=== PATIENT | female | born 1950 | race Caucasian/White ===

== ENCOUNTER 2017-10-17 10:53 | Outpatient (REF) | payer MEDICARE, OTHER, SELFPAY ==
[2017-10-17 22:02] LABS: ALT 16 U/L (12-78); AST 16 U/L (15-37); Albumin 3.9 g/dL (3.4-5.0); Alkaline Phosphatase 77 U/L (46-116); BUN 14 mg/dL (7-18); Bilirubin, Total 0.4 mg/dL (0.2-1.0); CREATININE 0.83 mg/dL (0.55-1.02); Calcium 8.9 mg/dL (8.5-10.1); Chloride 105 mmol/L (98-107); Cholesterol 178 mg/dL (50-200); Glucose 92 mg/dL (70-100); HDL Cholesterol 67 mg/dL (40-60); LDL CHOLESTEROL 99 mg/dL (<100); Sodium 140 mmol/L (136-145); Total Protein 6.8 g/dL (6.4-8.2); Triglyceride 92 mg/dL (30-150)
[2017-10-19 11:01] LABS: Vitamin D 25 Total 38.9 ng/ml (30-100)
[2017-10-20 11:42] LABS: Hepatitis C Ab w Rflx HCV PCR Negative (NEGAT)
== END 2017-10-17 10:54 ==
LOC: NCHCN 10:53
PROVIDERS: Visit Provider Nurse Practitioner Family
DX: E78.5 Hyperlipidemia, unspecified (principal); M85.80 Other specified disorders of bone density and structure, unspecified site; F41.0 Panic disorder [episodic paroxysmal anxiety]; R53.83 Other fatigue; M54.5 Low back pain; M12.849 Other specific arthropathies, not elsewhere classified, unspecified hand; F32.9 Major depressive disorder, single episode, unspecified
CPT/HCPCS: 80053; 80061; 82306; 83721; 86803

== ENCOUNTER → 2017-11-04 00:44 | Outpatient (CLI) | payer MEDICARE, OTHER, SELFPAY ==
--- NOTE | 2017-11-04 15:48 | DI.RAD_ITS ---
SYMPTOMS/DIAGNOSIS: OSTEOPENIA, M85.80 DEXA SCAN: The dorsal lumbar scanogram is unremarkable. For the right forearm, a T score of 0.3 and a Z score of 2.0 are within the normal range. For the left hip, a T score of 0.5 and a Z score of 1.9 are also within the normal range. For the lumbar spine, a T score of -1.5 and a Z score of 0.4 indicate osteopenia and an increased fracture risk. When compared with the 08/05/2002 exam, the evaluation of the left hip would be consistent with a -1.7% decrease in mineralization. For the lumbar spine, the values today would correspond to a +5.0% interval increase in mineralization when compared with the 08/05/2002 exam.
== END ==
PROVIDERS: PCP Nurse Practitioner Family; Visit Provider Nurse Practitioner Family
DX: M85.80 Other specified disorders of bone density and structure, unspecified site (principal)
CPT/HCPCS: 77080

== ENCOUNTER → 2018-01-12 01:19 | Outpatient (CLI) | payer MEDICARE, OTHER, SELFPAY ==
--- NOTE | 2018-01-12 15:19 | DI.MAMMO_ITS ---
SYMPTOM/DIAGNOSIS: SCREENING, Z12.31 BILATERAL SCREENING MAMMOGRAM: Mammograms were interpreted according to the usual protocol including computer analysis with CAD system, tomosynthesis and C view imaging. Comparison is made with exams from 2013 through 2017. The breasts are composed of scattered fibroglandular densities, breast density Category B. There are no suspicious masses or suspicious microcalcifications seen. There has been no significant change. IMPRESSION: Category 1-B, negative mammogram. Yearly screening mammography is recommended. [facility] ASSESSMENT OF FINDINGS: Negative. Category 1. Patient will receive a letter notifying them of these results. BI-RADS category B. There are scattered areas of fibroglandular density.
== END ==
PROVIDERS: PCP Nurse Practitioner Family; Visit Provider Nurse Practitioner Family
DX: Z12.31 Encounter for screening mammogram for malignant neoplasm of breast (principal)
CPT/HCPCS: 77063; 77067

== ENCOUNTER 2018-08-10 15:11 | Outpatient (REF) | payer MEDICARE, OTHER, SELFPAY ==
[2018-08-10 21:37] LABS: ALT 29 U/L (12-78); AST 25 U/L (15-37); Albumin 4.1 g/dL (3.4-5.0); Alkaline Phosphatase 92 U/L (46-116); Anion Gap 8.9 mmol/L (3-11); BUN 23 mg/dL (7-18); Bilirubin, Total 0.3 mg/dL (0.2-1.0); CO2 31.1 mmol/L (21.0-32.0); CREATININE 0.85 mg/dL (0.55-1.02); Calcium 9.3 mg/dL (8.5-10.1); Chloride 102 mmol/L (98-107); Glucose 104 mg/dL (70-100); Sodium 142 mmol/L (136-145); Total Protein 7.2 g/dL (6.4-8.2)
== END 2018-08-10 15:31 ==
LOC: NCHCN 15:11
PROVIDERS: PCP Nurse Practitioner Family; Visit Provider Nurse Practitioner Family
DX: K30 Functional dyspepsia (principal); R53.83 Other fatigue; F32.9 Major depressive disorder, single episode, unspecified; E78.5 Hyperlipidemia, unspecified; I10 Essential (primary) hypertension; G47.33 Obstructive sleep apnea (adult) (pediatric); M54.5 Low back pain; E66.3 Overweight
CPT/HCPCS: 80053

== ENCOUNTER 2019-03-04 00:53 | Outpatient (CLI) | payer MEDICARE, OTHER, SELFPAY ==
--- NOTE | 2019-03-04 12:29 | DI.MAMMO_ITS ---
EXAM: MAMMO SCREENING CLINICAL HISTORY: SCREENING Z12.31. TECHNIQUE: Full field digital CC and MLO mammographic images were obtained with 3D tomosynthesis and utilizing computer aided detection (CAD). COMPARISON: 2010 to 2017. FINDINGS: Breast Density - Category B - Scattered areas of fibroglandular density Masses/Architectural Distortion: None seen. Microcalcifications: No suspicious pleomorphic-type calcifications are seen. Skin Thickening/Nipple Retraction: None. Axilla: Unremarkable. IMPRESSION: 1. BI-RADS category 1, negative. No significant interval change with no specific features of maligna ncy noted. 2. Unless there is more urgent need, screening mammography is recommended, as per [employer] guidelines. BI-RADS Cat 1 - Negative Breast Density - Category B - Scattered areas of fibroglandular density A negative radiographic report should not delay biopsy if a dominant or clinically suspicious mass is present. Up to ten percent of cancers are not identified on mammography. A negative report may reinforce clinical impression. Adenosis and dense breasts may obscure an underlying neoplasm. False positive reports average 6 to 10%. Patient will receive a letter notifying them of these results.
== END 2019-03-04 01:13 ==
PROVIDERS: PCP Nurse Practitioner Family; Visit Provider Nurse Practitioner Family
DX: Z12.31 Encounter for screening mammogram for malignant neoplasm of breast (principal)
CPT/HCPCS: 77063; 77067

== ENCOUNTER 2019-08-03 09:49 | Outpatient (REF) | payer MEDICARE, OTHER, SELFPAY ==
[2019-08-03 22:23] LABS: ALT 25 U/L (14-59); AST 19 U/L (15-37); Albumin 4.3 g/dL (3.4-5.0); Alkaline Phosphatase 110 U/L (46-116); Anion Gap 9.2 mmol/L (3-11); BUN 18 mg/dL (7-18); Bilirubin, Total 0.5 mg/dL (0.2-1.0); CO2 29.8 mmol/L (21.0-32.0); CREATININE 0.86 mg/dL (0.55-1.02); Calcium 9.2 mg/dL (8.5-10.1); Chloride 102 mmol/L (98-107); Glucose 97 mg/dL (74-106); Magnesium 2.3 mg/dL (1.8-2.4); Sodium 141 mmol/L (136-145); Total Protein 7.5 g/dL (6.4-8.2); Vitamin B12 336 pg/mL (193-986)
== END 2019-08-03 10:09 ==
LOC: NCHCN 09:49
PROVIDERS: PCP Nurse Practitioner Family; Visit Provider Nurse Practitioner Family
DX: I10 Essential (primary) hypertension (principal); R53.83 Other fatigue; F32.9 Major depressive disorder, single episode, unspecified; K30 Functional dyspepsia; E66.3 Overweight; G47.33 Obstructive sleep apnea (adult) (pediatric)
CPT/HCPCS: 80053; 82607; 83735

== ENCOUNTER → 2019-11-04 13:02 | Outpatient (BNVA) | payer MEDICARE, OTHER, SELFPAY | PROVIDERS: PCP Nurse Practitioner Family; Referring Provider Nurse Practitioner Family; Visit Provider Physical Therapy Assistant | DX: Z12.11 Encounter for screening for malignant neoplasm of colon (principal); I10 Essential (primary) hypertension ==

== ENCOUNTER 2019-11-22 09:12 | Day surgery (SDC) | payer MEDICARE, OTHER, SELFPAY ==
--- NOTE | 2019-11-22 06:45 | W.COLOREPORT ---
Date of service: 11/22/19 Time of Service: 10:52 Colonoscopy Report Date of procedure: 11/22/19 Pre-op diagnosis general: Colon Cancer Screening Post-op diagnosis procedure note: same (and mild escobar-diverticulosis) Procedure: Colonoscopy Surgeon: Rosalie Nieto Anesthesia proc note operative: other (General/ASA 2 /Bg [place] CRNA) Estimated blood loss (mL): 0 Pathology: none sent Complications: None Disposition: no change Indications: The patient is here for Colonoscopy pre-op. She is unable to recall when her last Colonoscopy was. Unable to find records for her Colonoscopy. She has no family history of colon cancer. She has not had any bowel habit changes. -Discussed colonoscopy bowel prep as well as the procedure. Discussed possible complications of the procedure to include bleeding, pain, perforation, missed small lesion/polyp, sore throat, aspiration and adverse reaction to the medications. Questions were answered to patient?s satisfaction. No guarantees were implied or given. Prep: Miralax/Dulcolax Procedure Start Time: :52 Procedure End Time: 11:15 Retraction Time: 12 minutes Findings: mild escobar-diverticulosis Procedure Description: After informed consent was obtained the patient was taken to the procedure room and placed in a left decubitous position. Monitors were applied and a time out was done. The patients name, date of , procedure, allergies to medications and metal in their body was reviewed. The patient was then sedated. Once sedated and comfortable a rectal exam was done. External exam was normal. Internal exam revealed a normal sphincter tone and no palpable masses. The scope was then introduced and retro-flexed. No internal hemorrhoids were identified. The scope was then advanced to the cecum without difficulty. The ileocecal valve and appendiceal orifice were identified. The prep was good. The scope was then slowly retracted over 12 minutes back into the rectum. There were no polyps. There was mild escobar-diverticulosis noted. The scope was removed and the patient was woken up and taken back to Same day surgery in stable condition. The patient tolerated the procedure well and there were no immediate complications. Follow up: The patient should follow up in 10 years unless they develop changes in bowel habits or other new gastrointestinal complaints.
--- NOTE | 2019-11-22 06:47 | W.PM.DSUDISC ---
Discharge Plan Disposition Patient Disposition: HOME Condition: Good Discharge Details Reason For Visit: Colonoscopy Attending Provider: Rosalie Nieto Primary Care Provider: Angelica Aguirre Home Meds and New Rx's Prescriptions: Continued omeprazole 20 mg capsule,delayed release(DR/EC) 20 mg PO DAILY RF: 0 amlodipine [Norvasc] 5 mg tablet 5 mg PO DAILY RF: 0 simvastatin 20 mg tablet 20 mg PO DAILY RF: 0 losartan-hydrochlorothiazide 100-25 mg tablet 1 tab PO DAILY RF: 0 cholecalciferol (vitamin D3) 25 mcg (1,000 unit) capsule 25 mcg PO DAILY RF: 0 sertraline 50 MG tablet 50 mg PO DAILY RF: 0 calcium carbonate 500 MG tablet,chewable 500 mg PO DAILY RF: 0 Discontinued polyethylene glycol 3350 17 gram/dose powder 238 g PO ONCE Qty: 238 RF: 0 bisacodyl [Dulcolax (bisacodyl)] 5 mg tablet,delayed release (DR/EC) 5 mg PO ONCE Qty: 4 RF: 0 Discharge Instructions Instructions: Diverticulosis (DC) Additional Instructions: Findings: mild diverticulosis Follow up: 10 years Please call if you develop: fevers >101.5 Nausea or Vomiting Abdominal pain that is not transient DAY SURGERY UNIT POST ENDOSCOPY INSTRUCTIONS 1. Because there will be medication in your system for the next 24 hours, you may feel a little sleepy. Your coordination will be affected. Therefore: a. Do not drive or operate dangerous equipment for 24 hours. b. Do not drink alcohol beverages for 24 hours (not even beer). c. Plan to go home and rest for the day. 2. Generally there are no restrictions on your activity after a day or so has gone by, but you may feel a bit fatigued for a few days. 3 After you arrive home you may have a light meal and return to a normal diet as you can tolerate it without feeling sick to your stomach. 4. After surgery, you may feel pain or discomfort. This should be only transient, but if it persists please contact your doctor. 5. If there are any questions regarding the findings of your procedure, please feel free to contact your doctor. 6. If you are unable to contact your doctor with a problem, contact the hospital at [phone]. 7. Continue all your regular medications unless directed otherwise. I understand the above instructions and have no questions. Signature of Patient or Responsible Adult Escort Date/Time Name of Responsible Adult Escort Signature of Nurse Date/Time Activity:: Activity as Tolerated Diet:: High Fiber diet Discharge Orders Discharge Orders: Discharge Order (Routine); Ordered 11/22/19 Ordered By: Rosalie Nieto
[2019-11-22 09:28] VITALS: BP 123/81; PULSE 74; RESP 16; TEMP 36.6; O2SAT 99
[2019-11-22] MEDS: Lactated Ringers 1,000 ML 80 ML IV ×2 (10:11→10:55)
[2019-11-22 11:55] VITALS: BP 120/78; PULSE 55; RESP 16; TEMP 36.5; O2SAT 98
== END 2019-11-22 12:13 | disposition home or self-care (01) ==
LOC: SUR 09:13
PROVIDERS: PCP Nurse Practitioner Family; Visit Provider Surgery
PROC: 0DJD8ZZ Inspection of Lower Intestinal Tract, Via Natural or Artificial Opening Endoscopic (ICD-10-PCS; CPT 45378; principal; 2019-11-22 10:30)
DX: Z12.11 Encounter for screening for malignant neoplasm of colon (principal); K21.9 Gastro-esophageal reflux disease without esophagitis; I10 Essential (primary) hypertension; K57.30 Diverticulosis of large intestine without perforation or abscess without bleeding
CPT/HCPCS: G0121; J2001

== ENCOUNTER 2019-11-24 11:41 | Outpatient (REF) | payer MEDICARE, OTHER, SELFPAY ==
[2019-11-24 22:04] LABS: HCT 39.7 % (36.0-46.0); HGB 13.3 g/dL (11.2-15.7); MCH 31.3 pg (27.0-33.0); MCHC 33.5 % (32.0-36.0); MCV 93.4 fL (80-95); MPV 11.5 fL (8.0-11.0); Platelet Count 250 10^3/uL (130-400); RBC 4.25 10^6/uL (3.93-5.22); RDW 12.1 % (11.7-14.6); RDW-SD 41.7 fL; WBC 5.39 10^3/uL (4.4-10.8)
[2019-11-24 22:24] LABS: TSH (W/Ref FT4) 1.99 uIU/mL (0.36-3.74)
[2019-11-25 05:02] LABS: Vitamin D 25 Total 49.4 ng/ml (30-100)
== END 2019-11-24 12:01 ==
LOC: NCHCN 11:41
PROVIDERS: PCP Nurse Practitioner Family
DX: I10 Essential (primary) hypertension (principal); R53.83 Other fatigue; E66.8 Other obesity; G47.33 Obstructive sleep apnea (adult) (pediatric)
CPT/HCPCS: 82306; 85027; 84443

== ENCOUNTER 2020-02-02 19:28 | Outpatient (REF) | payer MEDICARE, SELFPAY ==
[2020-02-04 14:47] LABS: COVID-19 RT-PCR UVMMC Result Negative (Negative)
== END 2020-02-02 19:48 ==
LOC: NCHCN 19:28
PROVIDERS: PCP Nurse Practitioner Family; Visit Provider Nurse Practitioner Family
DX: Z20.828 Contact with and (suspected) exposure to other viral communicable diseases (principal)
CPT/HCPCS: U0003

== ENCOUNTER 2020-03-22 02:10 | Outpatient (CLI) | payer MEDICARE, OTHER, SELFPAY ==
--- NOTE | 2020-03-22 | DI.MAMMO_ITS ---
EXAM: MG MAMMO SCREENING CLINICAL HISTORY: SCREENING, Z12.39 TECHNIQUE: Bilateral full field digital CC and MLO mammographic images were obtained with 3D tomosyn thesis and utilizing computer aided detection (CAD). COMPARISON: Available for comparison. FINDINGS: Masses/Architectural Distortion: Stable scattered fibronodular densities are present. No suspicious masses or areas of architectural distortion are present. Microcalcifications: No suspicious pleomorphic-type are seen. Skin Thickening/Nipple Retraction: None. IMPRESSION: 1. No significant interval change with no specific features of malignancy noted. 2. Unless there is more urgent need, screening mammography is recommended, as per [employer] guidelines. BI-RADS Category 1 - Negative Breast Density - Category B - Scattered areas of fibroglandular density Breast density category C or D implies that the patient has dense breast tissue. Dense breast tissue is very common and is not abnormal but dense breast tissue can make it harder to find cancer on a ma mmogram. Also, dense breast tissue may increase their breast cancer risk. This information about the result of the mammogram report was provided to the patient to raise their awareness. Use this report when you speak with the patient about their risks for breast cancer, which includes their family hist ory. At that time, you may recommend for more screening tests (Ultrasound or MRI) as they might be us eful based on their risk. A negative radiographic report should not delay biopsy if a dominant or clinically suspicious mass is present. Up to ten percent of cancers are not identified on mammography. A negative report may reinforce clinical impression. Adenosis and dense breasts may obscure an underlying neoplasm. False positive reports average 6 to 10%. Patient will receive a letter notifying them of these results.
== END 2020-03-22 02:11 | disposition home or self-care (01) ==
LOC: DI 02:11
PROVIDERS: PCP Nurse Practitioner Family; Visit Provider Nurse Practitioner Family
DX: Z12.31 Encounter for screening mammogram for malignant neoplasm of breast (principal)
CPT/HCPCS: 77063; 77067

== ENCOUNTER 2020-08-29 12:55 | Outpatient (REF) | payer MEDICARE, OTHER, SELFPAY ==
[2020-08-29 21:10] LABS: ALT 22 U/L (14-59); AST 17 U/L (15-37); Alkaline Phosphatase 80 U/L (46-116); Anion Gap 10.3 mmol/L (3-11); BUN 15 mg/dL (7-18); Bilirubin, Total 0.5 mg/dL (0.2-1.0); CO2 27.7 mmol/L (21.0-32.0); CREATININE 0.9 mg/dL (0.55-1.02); Calcium 9.3 mg/dL (8.5-10.1); Chloride 106 mmol/L (98-107); Glucose 92 mg/dL (74-106); Potassium 4.1 mmol/L (3.5-5.1); Sodium 144 mmol/L (136-145); Total Protein 6.9 g/dL (6.4-8.2)
== END 2020-08-29 12:56 | disposition home or self-care (01) ==
LOC: NCHCN 12:55
PROVIDERS: PCP Nurse Practitioner Family; Visit Provider Nurse Practitioner Family
DX: C44.310 Basal cell carcinoma of skin of unspecified parts of face (principal); K30 Functional dyspepsia; G47.33 Obstructive sleep apnea (adult) (pediatric); R53.83 Other fatigue; M54.5 Low back pain; E66.3 Overweight; F41.9 Anxiety disorder, unspecified; I10 Essential (primary) hypertension
CPT/HCPCS: 80053

== ENCOUNTER 2021-07-19 16:46 | Outpatient (REF) | payer MEDICARE, OTHER, SELFPAY ==
[2021-07-19 20:57] LABS: ALT 25 U/L (14-59); AST 15 U/L (15-37); Albumin 4.2 g/dL (3.4-5.0); Alkaline Phosphatase 88 U/L (46-116); Anion Gap 11.2 mmol/L (3-11); BUN 16 mg/dL (7-18); Bilirubin, Total 0.6 mg/dL (0.2-1.0); CO2 28.8 mmol/L (21.0-32.0); Calcium 9.2 mg/dL (8.5-10.1); Chloride 101 mmol/L (98-107); Estimated GFR 54.81 (mL/min/1.73m2); Glucose 111 mg/dL (74-106); Magnesium 2.2 mg/dL (1.8-2.4); Potassium 4.1 mmol/L (3.5-5.1); Sodium 141 mmol/L (136-145); Total Protein 7.2 g/dL (6.4-8.2); Vitamin B12 524 pg/mL (193-986)
== END 2021-07-19 16:47 | disposition home or self-care (01) ==
LOC: NCHCN 16:46
PROVIDERS: PCP Nurse Practitioner Family; Visit Provider Nurse Practitioner Family
DX: C44.310 Basal cell carcinoma of skin of unspecified parts of face (principal); K30 Functional dyspepsia; G47.33 Obstructive sleep apnea (adult) (pediatric); I10 Essential (primary) hypertension; R53.83 Other fatigue; M54.50 Low back pain, unspecified; F41.9 Anxiety disorder, unspecified
CPT/HCPCS: 80053; 82607; 83735

== ENCOUNTER 2022-04-26 00:20 | Outpatient (CLI) | payer MEDICARE, OTHER, SELFPAY ==
--- NOTE | 2022-04-26 12:15 | DI.MAMMO_ITS ---
Exam(s) MAMMO SCREENING EXAM: MAMMO SCREENING CLINICAL HISTORY: SCREENING, Z12.39 TECHNIQUE: Bilateral full field digital CC and MLO mammographic images were obtained with 3D tomosyn thesis and utilizing computer aided detection (CAD). COMPARISON: Available for comparison. FINDINGS: Masses/Architectural Distortion: Stable nodules are seen in the left breast. No suspicious masses ar e seen. No evidence of architectural distortion is seen. Microcalcifications: No suspicious pleomorphic-type are seen. Skin Thickening/Nipple Retraction: None. IMPRESSION: 1. No significant interval change with no specific features of malignancy noted. 2. Unless there is more urgent need, screening mammography is recommended, as per [employer] guidelines. BI-RADS Category 1 - Negative Breast Density - Category B - Scattered areas of fibroglandular density Breast density category C or D implies that the patient has dense breast tissue. Dense breast tissue is very common and is not abnormal but dense breast tissue can make it harder to find cancer on a ma mmogram. Also, dense breast tissue may increase their breast cancer risk. This information about the result of the mammogram report was provided to the patient to raise their awareness. Use this report when you speak with the patient about their risks for breast cancer, which includes their family hist ory. At that time, you may recommend for more screening tests (Ultrasound or MRI) as they might be us eful based on their risk. A negative radiographic report should not delay biopsy if a dominant or clinically suspicious mass is present. Up to ten percent of cancers are not identified on mammography. A negative report may reinforce clinical impression. Adenosis and dense breasts may obscure an underlying neoplasm. False positive reports average 6 to 10%. Patient will receive a letter notifying them of these results.
== END 2022-04-26 00:40 ==
LOC: DI 00:21
PROVIDERS: PCP Nurse Practitioner Family; Visit Provider Nurse Practitioner Family
DX: Z12.31 Encounter for screening mammogram for malignant neoplasm of breast (principal); N63.20 Unspecified lump in the left breast, unspecified quadrant
CPT/HCPCS: 77063; 77067

== ENCOUNTER 2022-06-13 01:13 | Outpatient (CLI) | payer MEDICARE, OTHER, SELFPAY ==
--- NOTE | 2022-06-13 | DI.DEXA_ITS ---
Exam(s) XR DEXA BONE DENSITY W/WO CHRIS EXAM: XR DEXA BONE DENSITY W/WO CHRIS CLINICAL HISTORY: DISORDER BONE DENSITY M85.88 OSTEOPENIA M85.80 TECHNIQUE: COMPARISON: Comparison is 11/04/2017. FINDINGS: Lateral Spine Image: Unremarkable. No compression deformities identified. Left hip: Total T-Score: 0.1. This compares to 0.5 on the prior examination. Total Z-Score: 1.6 T- and Z-scores: Within normal limits. Lumbar Spine: Total T-Score: -1.5. This is unchanged compared to the prior examination. Total Z-Score: 0.7 T- and Z-scores: Findings are consistent with osteopenia. IMPRESSION: No evidence of osteoporosis in the lumbar spine or left hip.
== END 2022-06-13 01:33 ==
PROVIDERS: PCP Nurse Practitioner Family; Visit Provider Nurse Practitioner Family
DX: M85.89 Other specified disorders of bone density and structure, multiple sites (principal)
CPT/HCPCS: 77080

== ENCOUNTER 2022-09-24 10:48 | Outpatient (REF) | payer MEDICARE, OTHER, SELFPAY ==
[2022-09-24 15:16] LABS: Hemoglobin A1C 5.8 % (<5.7)
[2022-09-24 15:33] LABS: Anion Gap 7.1 mmol/L (3-11); BUN 16 mg/dL (7-18); CO2 31.9 mmol/L (21.0-32.0); CREATININE 0.9 mg/dL (0.55-1.02); Calcium 9.4 mg/dL (8.5-10.1); Chloride 103 mmol/L (98-107); Estimated GFR 68.35 (mL/min/1.73m2); Glucose 100 mg/dL (74-106); Magnesium 2.2 mg/dL (1.8-2.4); Potassium 4.2 mmol/L (3.5-5.1); Sodium 142 mmol/L (136-145); Vitamin B12 745 pg/mL (193-986)
[2022-09-24 16:18] LABS: Vitamin D 25 Total 50.4 ng/mL (30-100)
== END 2022-09-24 10:49 | disposition home or self-care (01) ==
LOC: NCHCN 10:48
PROVIDERS: PCP Nurse Practitioner Family; Visit Provider Nurse Practitioner Family
DX: R60.0 Localized edema (principal); M85.88 Other specified disorders of bone density and structure, other site; K30 Functional dyspepsia; G47.33 Obstructive sleep apnea (adult) (pediatric); F41.9 Anxiety disorder, unspecified; E66.9 Obesity, unspecified; I10 Essential (primary) hypertension
CPT/HCPCS: 80048; 82306; 82607; 83036; 83735

== ENCOUNTER → 2023-04-29 02:41 | Outpatient (CLI) | payer MEDICARE, OTHER, SELFPAY ==
--- NOTE | 2023-04-29 12:41 | DI.MAMMO_ITS ---
Exam(s) MAMMO SCREENING EXAM: MAMMO SCREENING CLINICAL HISTORY: Z12.31 Screening mammogram for melig neoplasm of breast. TECHNIQUE: Bilateral full field digital CC and MLO mammographic images were obtained with 3D tomosyn thesis and utilizing computer aided detection (CAD). COMPARISON: Prior mammograms were reviewed. FINDINGS: No new findings in the right breast. In the left breast on the CC view there is benign-appearing oil cyst located 10 cm in from the nipple , lateral of center, consistent with element of fat necrosis. Otherwise more anteriorly in the left breast is a small group of benign-appearing microcalcifications which remains relatively stable. There are no new spiculated masses nor malignant appearing microcalcification groups. There is no significant architectural distortion nor skin thickening-retraction. IMPRESSION: Benign findings. No radiographic evidence of malignancy. BI-RADS Category 2 - Benign Findings Breast Density - Category B - Scattered areas of fibroglandular density Breast density Category C or D implies that the patient has dense breast tissue. Dense breast tissue can make it harder to find cancer on a mammogram. Dense breast tissue is also associated with an incr eased risk of breast cancer. This information about the result of the mammogram report was provided to the patient to raise their awareness. Use this report when you speak with the patient about their risks for breast cancer, which includes their family history. At that time, you may recommend additional screening tests (Ultrasoun d or MRI) as these tests may add significant information. A negative radiographic report should not delay biopsy if a dominant or clinically suspicious mass is present. Up to ten percent of cancers are not identified on mammography. A negative report may reinforce clinical impression. Adenosis and dense breasts may obscure an underlying neoplasm. False positive reports average 6 to 10%. Patient will receive a letter notifying them of these results.
== END ==
PROVIDERS: PCP Nurse Practitioner Family; Visit Provider Nurse Practitioner Family
DX: Z12.31 Encounter for screening mammogram for malignant neoplasm of breast (principal)
CPT/HCPCS: 77063; 77067

== ENCOUNTER 2023-09-22 18:40 | Outpatient (REF) | payer MEDICARE, OTHER, SELFPAY ==
[2023-09-22 17:29] LABS: ALT 23 U/L (14-59); AST 16 U/L (15-37); Albumin 4.1 g/dL (3.4-5.0); Alkaline Phosphatase 76 U/L (46-116); Anion Gap 6.8 mmol/L (3-11); BUN 13 mg/dL (7-18); Bilirubin, Total 0.48 mg/dL (0.2-1.0); CO2 32.2 mmol/L (21.0-32.0); CREATININE 0.8 mg/dL (0.55-1.02); Calculated LDL 81 mg/dL (<100); Chloride 105 mmol/L (98-107); Cholesterol 186 mg/dL (<200); Estimated GFR 78.24 (mL/min/1.73m2); Glucose 97 mg/dL (74-106); HDL Cholesterol 85 mg/dL (40-60); Magnesium 2.1 mg/dL (1.8-2.4); Potassium 4.7 mmol/L (3.5-5.1); Sodium 144 mmol/L (136-145); Total Protein 6.9 g/dL (6.4-8.2); Triglyceride 100 mg/dL (<150); Vitamin B12 995 pg/mL (193-986); Vitamin D 25 Total 57.1 ng/mL (30-100)
[2023-09-22 18:50] LABS: Calcium 9.5 mg/dL (8.5-10.1)
== END 2023-09-22 18:41 | disposition home or self-care (01) ==
LOC: NCHCN 18:40
PROVIDERS: PCP Nurse Practitioner Family; Visit Provider Nurse Practitioner Family
DX: I10 Essential (primary) hypertension (principal); E78.5 Hyperlipidemia, unspecified; R53.83 Other fatigue; M85.88 Other specified disorders of bone density and structure, other site; Z79.899 Other long term (current) drug therapy
CPT/HCPCS: 80053; 80061; 82306; 82607; 83735

== ENCOUNTER 2024-01-27 12:09 | Outpatient (REF) | payer MEDICARE, OTHER, SELFPAY ==
[2024-01-27 14:52] LABS: Hemoglobin A1C 5.7 % (<5.7)
[2024-01-27 15:36] LABS: Calculated LDL 103 mg/dL (<100); Cholesterol 208 mg/dL (<200); HDL Cholesterol 92 mg/dL (40-60); Triglyceride 65 mg/dL (<150)
== END 2024-01-27 12:10 | disposition home or self-care (01) ==
LOC: NCHCN 12:09
PROVIDERS: PCP Nurse Practitioner Family; Visit Provider Nurse Practitioner Family
DX: E78.5 Hyperlipidemia, unspecified (principal); R73.03 Prediabetes
CPT/HCPCS: 80061; 83036

== ENCOUNTER 2024-10-06 19:44 | Outpatient (REF) | payer MEDICARE, OTHER, SELFPAY ==
[2024-10-06 16:06] LABS: ALT 21 U/L (14-59); AST 12 U/L (15-37); Albumin 4.2 g/dL (3.4-5.0); Alkaline Phosphatase 81 U/L (46-116); Anion Gap 8.1 mmol/L (3-11); BUN 10 mg/dL (7-18); Bilirubin, Total 0.4 mg/dL (0.2-1.0); CO2 31.9 mmol/L (21.0-32.0); Calcium 9.2 mg/dL (8.5-10.1); Calculated LDL 93 mg/dL (<100); Chloride 104 mmol/L (98-107); Cholesterol 205 mg/dL (<200); Estimated GFR 91.26 (mL/min/1.73m2); Glucose 90 mg/dL (74-106); HDL Cholesterol 96 mg/dL (>or=50); Magnesium 2.3 mg/dL (1.8-2.4); Potassium 4.5 mmol/L (3.5-5.1); Sodium 144 mmol/L (136-145); Total Protein 7.0 g/dL (6.4-8.2); Triglyceride 81 mg/dL (<150); Vitamin B12 1657 pg/mL (193-986)
== END 2024-10-06 19:45 | disposition home or self-care (01) ==
LOC: NCHCN 19:44
PROVIDERS: PCP Nurse Practitioner Family; Visit Provider Nurse Practitioner Family
DX: I10 Essential (primary) hypertension (principal); K30 Functional dyspepsia
CPT/HCPCS: 80053; 80061; 82607; 83735

== ENCOUNTER 2024-10-14 18:45 | Outpatient (REF) | payer MEDICARE, OTHER, SELFPAY ==
[2024-10-14 16:09] LABS: Abs Immature Grans 0.01 10^3/uL (0.0-0.06); HCT 39.0 % (36.0-46.0); HGB 13.1 g/dL (11.2-15.7); Immature Grans % 0.2 %; MCH 32.1 pg (27.0-33.0); MCHC 33.6 % (32.0-36.0); MCV 96 fL (80-95); MPV 10.9 fL (8.0-11.0); Platelet Count 229 10^3/uL (130-400); RBC 4.08 10^6/uL (3.93-5.22); RDW 11.9 % (11.7-14.6); RDW-SD 42.0 fL; WBC 4.75 10^3/uL (4.4-10.8)
[2024-10-14 16:18] LABS: Iron 77 ug/dL (50-170); Total Iron Binding Capacity 303 ug/dL (250-450); Transferrin Sat 25 % (15-50)
[2024-10-14 16:29] LABS: Ferritin 81 ng/mL (8-252); TSH (W/Ref FT4) 1.89 uIU/mL (0.36-3.74)
== END 2024-10-14 18:46 | disposition home or self-care (01) ==
LOC: NCHCN 18:45
PROVIDERS: PCP Nurse Practitioner Family; Visit Provider Nurse Practitioner Family
DX: R55 Syncope and collapse (principal)
CPT/HCPCS: 82728; 83540; 83550; 84443; 85025

== ENCOUNTER 2024-10-27 13:53 | Outpatient (CLI) | payer MEDICARE, OTHER, SELFPAY | END 2024-10-27 13:54 | disposition home or self-care (01) | LOC: CARDOPNVT 13:53 | PROVIDERS: PCP Nurse Practitioner Family; Visit Provider Nurse Practitioner Family | DX: R55 Syncope and collapse (principal) | CPT/HCPCS: 93246 ==

== ENCOUNTER 2024-10-29 03:49 | Outpatient (CLI) | payer MEDICARE, OTHER, SELFPAY ==
--- NOTE | 2024-10-29 13:30 | DI.US_ITS ---
APPROVED REPORT EXAM: Comprehensive 2D, Doppler, and color-flow Echocardiogram Patient Location: Out-Patient Driver Examiner: Al Sheehan RDCS (AE) Indications: Syncope and collapse Other Information Study Quality: Adequate Conclusion Borderline concentric left ventricular hypertrophy. Ejection fraction is 60 to 65%. Wall motion is normal Normal right ventricular size and function Moderately dilated left atrium. Normal right atrial size There are no structural valvular abnormalities Mild mitral and tricuspid regurgitation Estimated right ventricular systolic pressure is 44 mmHg Mildly dilated ascending aorta 3.53 cm Wall motion Left Ventricle The left ventricle is normal size. The left ventricular systolic function is normal. The left ventricular ejection fraction is within the normal range. Borderline concentric left ventricular hypertrophy. There is normal LV segmental wall motion. There is no ventricular septal defect visualized. LVEF is 60-65%. Right Ventricle The right ventricle is normal size. The right ventricular systolic function is normal. Atria Left atrium is moderately dilated. The right atrium size is normal. The interatrial septum is intact with no evidence for an atrial septal defect. Aortic Valve The aortic valve is normal in structure. Aortic valve is trileaflet. There is no aortic valvular stenosis. No aortic regurgitation is present. Mitral Valve The mitral valve is normal in structure. No evidence of mitral valve stenosis. Mild mitral regurgitation. Tricuspid Valve The tricuspid valve is normal in structure. There is no tricuspid valve stenosis. Mild tricuspid regurgitation. The RVSP is 44.5 mmHg. Pulmonic Valve The pulmonary valve is normal in structure. There is no pulmonic valvular stenosis. Moderate pulmonic regurgitation. Great Vessels The aortic root is normal in size. The ascending aorta is mildly dilated. Aortic arch is normal in caliber. IVC is normal in size and collapses >50% with inspiration. Pericardium There is no pericardial effusion. 2D Dimensions IVSD d PLAX 1.14 cm F: 0.6-1.0 Ao Root d 2.93 cm F: 2.7 - 3.3 LVPW d PLAX 1.10 cm F: 0.6 - 1.0 Ao Asc Diam d 3.54 cm F: 2.3 - 3.1 LVID d PLAX 4.30 cm F: 3.8 - 5.2 LVDs 2.92 cm F: 2.2 - 3.5 LV EF Teichholz 60.5 % FS 32.02 % LV EDV (Teich) 83.2 mL LV ESV (Teich) 32.9 mL Stroke Vol Index (Teich) 30.47 M-Mode TAPSE 2.37 cm (M/F) >1.7 Auto EF LV EDV A4C 78.0 mL LV EDV A2C 71.9 mL LV EDV BP 80.2 mL LV ESV A4C 31.1 mL LV ESV A2C 25.6 mL LV ESV BP 28.2 mL LVEF(%) A4C 60.1 % LVEF(%) A2C 64.4 % LVEF(%) BP 64.9 % LV SV A4C 46.9 ml LV SV A2C 46.3 ml LV SV BP 52.1 ml LV CO A4C 2.8 L/min LV CO A2C 3.4 L/min LV CO BP 3.1 L/min HR A4C 60.41 BPM HR A2C 73.92 BPM LV EDV Index (BP) LA Volume LA Length A4C 5.2 cm LA Length A2C LA Area A4C s 21.91 cm2 LA Area A2C s LA Vol A4C A-L 78.02 mL LA Vol A2C A-L LA Vol Biplane A-L LA Vol A4C MOD 76.2 mL LA Vol A2C MOD LA Vol BP MOD RA Volume RA Area A4C 12.4 cm2 RA ESV A4C (A-L) 27.1mL RA Vol/BSA A4C A-L RA Length A4C 4.8 cm RA ESV A4C (MOD) 26.9mL LV Diastology MV E' medial 0.070 (>0.07 m/s) MV E Vmax 0.84 (0.4-1.3 m/s) MV E/E' MED 12.06 (<14) MV A Vmax 0.70 (0.4-1.3 m/s) MV E' lateral 0.103 (>0.1 m/s) E/A Ratio 1.2 MV E/E' LAT 8.18 (<14) MV E' Average 0.086 m/s MV E/E'(average) 9.75 Aortic Valve AoV Vmax 1.40 m/s LVOT Vmax 1.02 m/s AoV Peak Grad 7.9 mmHg LVOT Peak Grad 4.1 mmHg AoV Area (Vmax) 2.37 cm2 LVOT VTI 0.244 m AoV VTI 0.367 m LVOT Mean Grad 2.0 mmHg AoV Mean Marshall. 0.95 m/s LVOT SV 79.87 mL AoV Mean Grad 4.1 mmHg LVOT Diam s 2.00 cm AoV Area (VTI) 2.18 cm2 AV Regurg Peak Gr. 7.89 mmHg Velocity Ratio 0.73 Mitral Valve MV DT 169 (160-240 msec) Pulmonary Valve PV Vmax 0.87 (0.5-1.5 m/s) RVOT Vmax 0.57 m/s PV Peak Grad 3.1 mmHg RVOT Peak Gr. 1.3 mmHg PV Mean Marshall 0.58 m/s RVOT VTI 0.149 m PV Mean Grad 1.5 mmHg RVOT Mean Gr. 0.8 mmHg Tricuspid Valve RA Pressure 3.00 mmHg TR Vmax 3.22 m/s TR Peak Grad 41.4 mmHg RVSP (TR) 44.5 mmHg
== END 2024-10-29 04:09 ==
LOC: DI 03:49
PROVIDERS: PCP Nurse Practitioner Family; Visit Provider Nurse Practitioner Family
DX: R55 Syncope and collapse (principal); I51.7 Cardiomegaly
CPT/HCPCS: 93306

== ENCOUNTER 2024-11-11 08:46 | Outpatient (CLI) | payer MEDICARE, OTHER, SELFPAY ==
--- NOTE | 2024-11-11 14:07 | DI.RAD_ITS ---
Exam(s) XR CHEST 2V PA LATERAL EXAM: XR CHEST 2V PA LATERAL CLINICAL HISTORY: LT ATRIAL DILATATION,I51.7 TECHNIQUE: 2D digital imaging was performed. Two views. COMPARISON: No exams were available for comparison FINDINGS: HEART: Mildly dilated. Aorta: Tortuous. PULMONARY VASCULATURE: Normal. MEDIASTINUM: Unremarkable. LUNGS: Clear. PLEURAL SPACE: No pleural effusion or pneumothorax. BONE:old left rib fractures. Degenerative changes in the thoracic spine. No compression fractures. SOFT TISSUES: Unremarkable. IMPRESSION: Mildly enlarged heart. No acute abnormality. DATA REPOSITORY: RADIATION DOSE DELIVERED:
== END 2024-11-11 09:06 ==
LOC: DI 08:49
PROVIDERS: PCP Nurse Practitioner Family; Visit Provider Nurse Practitioner Family
DX: I51.7 Cardiomegaly (principal)
CPT/HCPCS: 71046

== ENCOUNTER 2024-11-18 07:46 | Outpatient (CLI) | payer MEDICARE, OTHER, SELFPAY ==
--- NOTE | 2024-11-18 11:23 | W.CARDEVENT ---
Date of service: 11/18/24 Time of Service: 11:23 Cardiac Event Recorder Referring Provider:: Angelica Aguirre Indications:: Syncope Cardiac Event Note: This is a cardiac event monitor. Patient was monitored for 13 days and 19 hours Rhythm throughout was sinus with an average heart rate of 58. Minimum was 37, maximum 108 There were rare ventricular ectopic beats There were occasional atrial premature beats. Occasional self-limited atrial runs occurred. The longest of these was 12 beats in duration There was no atrial fibrillation, no high-grade AV block, no pauses greater than 3 seconds. Reported symptoms correlated both to sinus rhythm and to atrial premature beats
== END 2024-11-18 07:47 | disposition home or self-care (01) ==
LOC: CARDOPNVT 07:46
PROVIDERS: PCP Nurse Practitioner Family; Visit Provider Internal Medicine Cardiovascular Disease
DX: R55 Syncope and collapse (principal); I49.1 Atrial premature depolarization
CPT/HCPCS: 93248

== ENCOUNTER 2024-12-07 12:53 | Outpatient (CLI) | payer MEDICARE, OTHER, SELFPAY ==
--- NOTE | 2024-12-07 12:45 | RT.EKG_ITS ---
APPROVED REPORT Exam: Resting ECG Reason for Exam: near syncope Patient Location: O HR:53 bpm ECG Measurements Heart Rate 53 AXIS WV 151 P 25 QRSd 89 QRS 4 QT 441 T 5 QTc 414 Conclusion Sinus rhythm...normal P axis, V-rate 50- 99 Atrial premature complex...SV complex w/ short R-R interval Otherwise normal ECG Respiratory artifact
== END 2024-12-07 12:54 | disposition home or self-care (01) ==
LOC: DI.CARD 12:53
PROVIDERS: PCP Nurse Practitioner Family; Visit Provider Internal Medicine Cardiovascular Disease
DX: R55 Syncope and collapse (principal)
CPT/HCPCS: 93010

== ENCOUNTER → 2024-12-07 13:16 | Outpatient (BNVA) | payer MEDICARE, OTHER, SELFPAY | PROVIDERS: PCP Nurse Practitioner Family; Referring Provider Nurse Practitioner Family; Visit Provider Internal Medicine Cardiovascular Disease | DX: R55 Syncope and collapse (principal); I10 Essential (primary) hypertension | CPT/HCPCS: 99203; 93005 ==